=== PATIENT | male | born 1965 | race Caucasian/White ===

== ENCOUNTER → 2019-07-15 | Outpatient (CLI) | payer BC ==
[2019-07-15 11:59] LABS: Basophils # (A) 0.1 k/uL (0-0.2); Basophils % (A) 2 %; Eosinophils # (A) 0.3 k/uL (0-0.7); Eosinophils % (A) 5 %; HCT 43.9 % (39.0-53.0); HGB 14.5 gm/dL (13.0-17.5); Lymphocytes % (A) 20 %; MCH 31.2 pg (25.0-35.0); MCV 94.7 fL (80.0-100.0); Mean Platelet Volume 6.3; Monocytes # (A) 0.4 k/uL (0-1.0); Monocytes % (A) 9 %; Neutrophils # (A) 2.9 k/uL (1.3-7.7); Neutrophils % (A) 61 %; Platelet Count 258 k/uL (150-450); RBC 4.64 m/uL (4.30-5.90); RDW 12.8 % (11.5-15.5); WBC 4.8 k/uL (3.8-10.6)
[2019-07-15 16:41] LABS: African American GFR (CKD) 99.8 (60.0-200.0); Albumin 4.3 g/dL (3.80-4.90); Albumin/Globulin Ratio 2.05 (1.60-3.17); Anion Gap 6.7 mmol/L (4.00-12.00); Calcium 9.2 mg/dL (8.7-10.3); Carbon Dioxide 26.3 mmol/L (21.6-31.8); Chol/HDL Ratio 4.91; Globulin 2.1 g/dL (1.6-3.3); LDL Cholesterol,Calculated 154.2 mg/dL (0.0-131.0); Potassium 4.2 mmol/L (3.5-5.5); Total Bilirubin 0.7 mg/dL (0.2-1.2); Total Protein 6.4 g/dL (6.2-8.2); VLDL Calculation 13.8 mg/dL (5.00-40.00)
[2019-07-15 18:06] LABS: Hemoglobin A1C 5.5 % (4.0-6.0)
== END | disposition home or self-care (01) ==
LOC: LABWHC1 11:26
PROVIDERS: ATTEND Family Medicine
DX: Z00.00 Encounter for general adult medical examination without abnormal findings (principal); Z13.220 Encounter for screening for lipoid disorders; Z12.5 Encounter for screening for malignant neoplasm of prostate; Z13.1 Encounter for screening for diabetes mellitus; E29.1 Testicular hypofunction; Z82.49 Family history of ischemic heart disease and other diseases of the circulatory system
CPT/HCPCS: 80061; 80053; 84443; 85025; 86141; 84402; 84403; 83036; 36415; G0103

== ENCOUNTER 2019-09-18 09:07 | Day surgery (SDC) | payer BC ==
[2019-09-15 09:16] VITALS: BMI 30.1
[~2019-09-18 09:07] MED LIST: LACTATED RINGERS 1,000 ML IV SCH
[2019-09-18 09:54] VITALS: RESP 16; TEMP 97.8
[2019-09-18] MEDS ORDERED: PROPOFOL 10 MG/ML 20 ML VIAL IV ONE (10:10)
--- NOTE | 2019-09-18 10:44 | P.PCN ---
Date of Procedure: 09/18/19 Description of Procedure: BRIEF HISTORY: Patient is a 53-year-old male presents for screening colonoscopy for screening for malignant neoplasm of the colon. No prior colonoscopy reported. No change in bowel habits, blood per rectum or abdominal pain reported. PROCEDURE PERFORMED: Colonoscopy. PREOPERATIVE DIAGNOSIS: Screening for malignant neoplasm of the colon, no prior colonoscopy reported. ESTIMATED BLOOD LOSS: Minimal. IV sedation per Anesthesia. PROCEDURE: After informed consent was obtained, the patient, was brought into the endoscopy unit. IV sedation was administered by Anesthesia under continuous monitoring. Digital rectal examination was normal. Initially the Olympus CF-190 flexible video colonoscope was then inserted in the rectum, gradually advanced into the cecum without any difficulty. Careful examination was performed as the scope was gradually being withdrawn. Ileocecal valve and the appendiceal orifice were visualized and appeared normal. Prep was excellent. Mucosa of the cecum, ascending colon, transverse colon, descending colon, sigmoid colon, and rectum appeared normal, with some small diverticula noted in the sigmoid colon. Retroflexion was performed in the rectum and no lesions were seen, with low- grade internal hemorrhoids noted. The patient tolerated the procedure well. IMPRESSION: Mild sigmoid diverticulosis. Normal-appearing colon from rectum to cecum. RECOMMENDATIONS: Findings of this examination were discussed with the patient and his . Okay to resume diet. Would recommend repeat colonoscopy in 10 years or sooner if signs or symptoms which warrant further evaluation develop.
[2019-09-18 11:04] VITALS: BP 123/78; PULSE 50
== END 2019-09-18 11:41 | disposition home or self-care (01) ==
LOC: ORWHC2ENDO 09:07
PROVIDERS: ATTEND Internal Medicine
DX: Z12.11 Encounter for screening for malignant neoplasm of colon (principal); K57.30 Diverticulosis of large intestine without perforation or abscess without bleeding; K64.8 Other hemorrhoids; Z98.890 Other specified postprocedural states
CPT/HCPCS: J2704; G0121

== ENCOUNTER → 2022-09-16 | Day surgery (SDC) | payer BC ==
[2022-09-11 12:18] VITALS: BMI 29.4
[~2022-09-16] MED LIST changes: +BACITRACIN ZINC 500 UNIT/GM OINT 28.4 GM TUBE TOPICAL ONE; +DEXAMETHASONE SOD PHOSPHATE 10 MG/ML 1 ML VIAL ONE; +DEXAMETHASONE SOD PHOSPHATE 4 MG/ML 1 ML VIAL IV ONE; +DEXAMETHASONE SOD PHOSPHATE 4 MG/ML 1 ML VIAL IV PRN; +FAMOTIDINE 20 MG/2 ML VIAL IV PRN; +GLYCOPYRROLATE 0.2 MG/ML 2 ML VIAL ONE; +HYDROmorphone 0.5 MG/0.5 ML SYRINGE IVP PRN; +LIDOCAINE 1% (10MG/ML) FOR IV START INTRADERMA PRN; +LIDOCAINE 1%-EPI 1:100,000 20 ML VIAL SUBMUCOSAL ONE; +LIDOCAINE 2% INJ 20 MG/ML (2 ML VIAL) ONE; +MIDAZOLAM 2 MG/2 ML VIAL IV PRN; +MIDAZOLAM 2 MG/2 ML VIAL ONE; +NEOSTIGMINE 1 MG/ML 10 ML VIAL ONE; +ONDANSETRON 4 MG/2 ML VIAL IVP ONE; +ONDANSETRON 4 MG/2 ML VIAL IVP PRN; +PROPOFOL 10 MG/ML 20 ML VIAL IV ONE; +ROCURONIUM 10 MG/ML (5 ML VIAL) IV ONE; +SUCCINYLCHOLINE CHLORIDE 200 MG/10 ML VIAL IV ONE; +fentaNYL (PF) 50 MCG/ML 2 ML AMP ONE
[2022-09-16] MEDS: OXYMETAZOLINE 0.05% NASL SPRAY 1 SPRAY BOTTLE EA NOSTRIL PRN ×5 (09:33→09:53)
[2022-09-16 09:38] VITALS: RESP 16
--- NOTE | 2022-09-16 11:39 | P.OP ---
Date of Procedure: 09/16/22 Preoperative Diagnosis: Deviated nasal septum Inferior turbinate hypertrophy Postoperative Diagnosis: Same Procedure(s) Performed: Septoplasty Outfracture and submucous resection of the inferior turbinates Anesthesia: [place] Surgeon: Adal Sung Estimated Blood Loss (ml): 3 Pathology: other (Nasal septal bone and cartilage) Condition: stable Disposition: PACU Indications for Procedure: A 56-year-old white male with difficulties with nasal airway obstruction chronically bilaterally but left greater than right with notable deviation of the septum to the left and inferior turbinate hypertrophy Operative Findings: Septum deviated to the left obstructing approximately 80% of the nasal airway with inferior turbinate hypertrophy bilateral Description of Procedure: DESCRIPTION OF PROCEDURE: The patient was brought to the operative suite, placed in the supine position. The patient underwent induction of general anesthesia with oral endotracheal intubation without difficulty. The patient was prepped and draped in the usual aseptic fashion. 1% lidocaine with 1:100,000 epinephrine was infused submucosally on both sides of the nasal septum. While this was taking vasoconstrictive effect, the inferior turbinates were infractured with a Knott elevator. Partial submucous resection of the inferior turbinates was performed with Coblation device ablating a portion of the submucosal soft tissue. The inferior turbinates were then outfractured with a Knott elevator. A left hemitransfixion incision was then made through the mucoperichondrial. Mucoperiosteal flap on the left elevated. Bony cartilaginous junction was disart iculated and mucoperiosteal flap on the right was elevated. Bony nasoseptal deformity were removed with Bessy forceps and an inferior cartilaginous strip was removed, leaving a full 1.5 cm caudal strut. Checking intranasally, this corrected the nasal septal deformities and the hemitransfixion incision was closed with running 4-0 chromic suture. The bilateral Brown airway splints coated in bacitracin ointment were placed in the nasal cavities and sutured transseptally with 4-0 nylon suture. The patient was then suctioned in an orogastric fashion. The patient was allowed to emerge from general anesthesia, having tolerated the procedure well and was extubated in the operating suite, transferred to postoperative recovery area in satisfactory condition.
[2022-09-16 11:51] VITALS: TEMP 97.4
[2022-09-16 14:07] VITALS: BP 142/88; PULSE 72
== END | disposition home or self-care (01) ==
LOC: OR 08:42
PROVIDERS: ATTEND Otolaryngology
DX: J34.2 Deviated nasal septum (principal); J34.3 Hypertrophy of nasal turbinates; F10.90 Alcohol use, unspecified, uncomplicated; G91.9 Hydrocephalus, unspecified; Z98.890 Other specified postprocedural states
CPT/HCPCS: 30520; 30140; J2250; J0330; J1100 ×2; J2710; J0690; J2405; J3010; J2704; J2001; 88300